=== PATIENT | female | born 1950 | race Caucasian/White ===

== ENCOUNTER 2021-01-03 19:09 | Emergency (ER) | payer MEDICARE, OTHER ==
[2021-01-03 19:19] VITALS: RESP 18
--- NOTE | 2021-01-03 19:21 | ED ---
General Adult HPI <Gavin Solis - Last Filed: 01/04/21 02:43> - General Source: patient, EMS, RN notes reviewed, old records reviewed Mode of arrival: EMS Limitations: no limitations <Robin Goss - Last Filed: 01/04/21 18:14> - General Stated complaint: Mental health, ETOH Time Seen by Provider: 01/03/21 19:13 - History of Present Illness Initial comments: 70-year-old female presenting for mental health evaluation, complains of depression, suicidal ideation. Additionally she admits to heavy alcohol consumption today and may have fallen, uncertain if she hit her head. Additional complaint of left-sided chest pain which is nonradiating. No associated nausea vomiting or diaphoresis. No history of CAD. This is been ongoing for the past several days. She was transported by EMS with chief complaint of suicidal ideation and alcohol consumption. (Robin Goss) - Related Data Home Medications Medication Instructions Recorded Confirmed No Known Home Medications 01/03/21 01/03/21 Allergies Allergy/AdvReac Type Severity Reaction Status Date / Time No Known Allergies Allergy Unverified 01/03/21 20:17 Review of Systems ROS Other: All systems not noted in ROS Statement are negative. <Gavin Solis - Last Filed: 01/04/21 02:43> ROS Other: All systems not noted in ROS Statement are negative. <Robin Goss - Last Filed: 01/04/21 18:14> ROS Statement: Those systems with pertinent positive or pertinent negative responses have been documented in the HPI. Past Medical History Past Medical History: No Reported History History of Any Multi-Drug Resistant Organisms: None Reported Past Surgical History: Hysterectomy Past Psychological History: Depression Smoking Status: Current every day smoker Past Alcohol Use History: Occasional Past Drug Use History: Marijuana <Robin Goss - Last Filed: 01/04/21 18:14> General Exam Limitations: no limitations General appearance: alert, in no apparent distress, appears intoxicated Head exam: Present: atraumatic, normocephalic Eye exam: Present: normal appearance, PERRL ENT exam: Present: normal exam Neck exam: Present: normal inspection. Absent: tenderness, meningismus Respiratory exam: Present: normal lung sounds bilaterally. Absent: respiratory distress, wheezes Cardiovascular Exam: Present: regular rate, normal rhythm GI/Abdominal exam: Present: soft. Absent: distended, tenderness, guarding, rebound Extremities exam: Present: normal inspection, normal capillary refill. Absent: pedal edema, calf tenderness Neurological exam: Present: alert, oriented X3. Absent: motor sensory deficit Psychiatric exam: Present: depressed, suicidal ideation Skin exam: Present: warm, dry, intact. Absent: cyanosis, diaphoretic <Robin Goss - Last Filed: 01/04/21 18:14> Course <Robin Goss - Last Filed: 01/04/21 18:14> Vital Signs 01/03/21 01/03/21 01/04/21 19:10 23:26 03:24 Pulse Rate 72 63 65 Respiratory 18 18 18 Rate Blood Pressure 142/59 144/73 131/62 O2 Sat by Pulse 97 100 98 Oximetry 01/04/21 14:02 Pulse Rate 92 Respiratory 18 Rate Blood Pressure 126/80 O2 Sat by Pulse 98 Oximetry - Reevaluation(s) Reevaluation #1: 01/03/21 2100 70-year-old female, intoxication, head trauma, vague complaint of chest discomfort. Head CT performed negative for intracranial hemorrhage or mass effect, chest x-ray negative for acute cardiopulmonary disease. She has a normal CBC, normal CMP, negative troponin. She will be sober at 10 PM. At shift change, 2099 her care is signed out to Dr. Montanez awaiting sobriety and EPS evaluation. (Robin Goss) EKG Findings - EKG Comments: EKG Findings:: EKG: Sinus bradycardia, with marked sinus arrhythmia, rate of 46, VT interval 200, QRS duration 98, QTC 395 this does appear to be sinus bradycardia with no ST segment elevation. <Robin Goss - Last Filed: 01/04/21 18:14> Medical Decision Making - Lab Data Result diagrams: 01/03/21 19:38 01/03/21 19:38 <Gavin Solis - Last Filed: 01/04/21 02:43> - Lab Data Result diagrams: 01/03/21 19:38 01/03/21 19:38 <Robin Goss - Last Filed: 01/04/21 18:14> - Medical Decision Making I saw this patient for purpose of completing the clinical certificate (Gavin Rodas) - Lab Data Lab Results 01/03/21 01/03/21 01/03/21 Range/Units 19:29 19:38 19:38 WBC 8.2 (3.8-10.6) k/uL RBC 3.67 L (3.80-5.40) m/uL Hgb 12.2 (11.4-16.0) gm/dL Hct 36.7 (34.0-46.0) % MCV 100.0 (80.0-100.0) fL MCH 33.2 (25.0-35.0) pg MCHC 33.2 (31.0-37.0) g/dL RDW 15.2 (11.5-15.5) % Plt Count 213 (150-450) k/uL MPV 7.8 Neutrophils % 64 % Lymphocytes % 29 % Monocytes % 4 % Eosinophils % 1 % Basophils % 0 % Neutrophils # 5.3 (1.3-7.7) k/uL Lymphocytes # 2.4 (1.0-4.8) k/uL Monocytes # 0.3 (0-1.0) k/uL Eosinophils # 0.1 (0-0.7) k/uL Basophils # 0.0 (0-0.2) k/uL Macrocytosis Slight PT 10.7 (9.0-12.0) sec INR 1.0 (<1.2) APTT 24.3 (22.0-30.0) sec Sodium (137-145) mmol/L Potassium (3.5-5.1) mmol/L Chloride (98-107) mmol/L Carbon Dioxide (22-30) mmol/L Anion Gap mmol/L BUN (7-17) mg/dL Creatinine (0.52-1.04) mg/dL Est GFR (CKD-EPI)AfAm (>60 ml/min/1.73 sqM) Est GFR (CKD-EPI)NonAf (>60 ml/min/1.73 sqM) Glucose (74-99) mg/dL Calcium (8.4-10.2) mg/dL Magnesium (1.6-2.3) mg/dL Total Bilirubin (0.2-1.3) mg/dL AST (14-36) U/L ALT (4-34) U/L Alkaline Phosphatase (38-126) U/L Troponin I (0.000-0.034) ng/mL Total Protein (6.3-8.2) g/dL Albumin (3.5-5.0) g/dL Urine Opiates Screen Not Detected (NotDetected) Ur Oxycodone Screen Not Detected (NotDetected) Urine Methadone Screen Not Detected (NotDetected) Ur Propoxyphene Screen Not Detected (NotDetected) Ur Barbiturates Screen Not Detected (NotDetected) U Tricyclic Antidepress Not Detected (NotDetected) Ur Phencyclidine Scrn Not Detected (NotDetected) Ur Amphetamines Screen Not Detected (NotDetected) U Methamphetamines Scrn Not Detected (NotDetected) U Benzodiazepines Scrn Not Detected (NotDetected) Urine Cocaine Screen Not Detected (NotDetected) U Marijuana (THC) Screen Detected H (NotDetected) Serum Alcohol mg/dL Coronavirus (PCR) (Not Detectd) 01/03/21 01/03/21 01/03/21 Range/Units 19:38 19:38 20:49 WBC (3.8-10.6) k/uL RBC (3.80-5.40) m/uL Hgb (11.4-16.0) gm/dL Hct (34.0-46.0) % MCV (80.0-100.0) fL MCH (25.0-35.0) pg MCHC (31.0-37.0) g/dL RDW (11.5-15.5) % Plt Count (150-450) k/uL MPV Neutrophils % % Lymphocytes % % Monocytes % % Eosinophils % % Basophils % % Neutrophils # (1.3-7.7) k/uL Lymphocytes # (1.0-4.8) k/uL Monocytes # (0-1.0) k/uL Eosinophils # (0-0.7) k/uL Basophils # (0-0.2) k/uL Macrocytosis PT (9.0-12.0) sec INR (<1.2) APTT (22.0-30.0) sec Sodium 147 H (137-145) mmol/L Potassium 3.8 (3.5-5.1) mmol/L Chloride 112 H (98-107) mmol/L Carbon Dioxide 24 (22-30) mmol/L Anion Gap 11 mmol/L BUN 15 (7-17) mg/dL Creatinine 1.18 H (0.52-1.04) mg/dL Est GFR (CKD-EPI)AfAm 54 (>60 ml/min/1.73 sqM) Est GFR (CKD-EPI)NonAf 47 (>60 ml/min/1.73 sqM) Glucose 96 (74-99) mg/dL Calcium 9.3 (8.4-10.2) mg/dL Magnesium 2.2 (1.6-2.3) mg/dL Total Bilirubin 0.3 (0.2-1.3) mg/dL AST 22 (14-36) U/L ALT 11 (4-34) U/L Alkaline Phosphatase 59 (38-126) U/L Troponin I <0.012 (0.000-0.034) ng/mL Total Protein 7.6 (6.3-8.2) g/dL Albumin 4.6 (3.5-5.0) g/dL Urine Opiates Screen (NotDetected) Ur Oxycodone Screen (NotDetected) Urine Methadone Screen (NotDetected) Ur Propoxyphene Screen (NotDetected) Ur Barbiturates Screen (NotDetected) U Tricyclic Antidepress (NotDetected) Ur Phencyclidine Scrn (NotDetected) Ur Amphetamines Screen (NotDetected) U Methamphetamines Scrn (NotDetected) U Benzodiazepines Scrn (NotDetected) Urine Cocaine Screen (NotDetected) U Marijuana (THC) Screen (NotDetected) Serum Alcohol 178 mg/dL Coronavirus (PCR) Not Detected (Not Detectd) Disposition <Gavin Solis - Last Filed: 01/04/21 02:43> Is patient prescribed a controlled substance at d/c from ED?: No - Out of Hospital Transfer - Req. Specs Out of Hospital Transfer - Requested Specifics: Psychiatric Non-ICU (Psychiatric facility) <Robin Goss - Last Filed: 01/04/21 18:14> Clinical Impression: Depression, Suicidal ideation Disposition: TRANSFER TO PSYCH HOSP/UNIT Condition: Stable Referrals: Samantha Bautista MD [Primary Care Provider] - 1-2 days
[2021-01-03 19:45] LABS: Basophils % (A) 0 %; Eosinophils # (A) 0.1 k/uL (0-0.7); Eosinophils % (A) 1 %; HCT 36.7 % (34.0-46.0); HGB 12.2 gm/dL (11.4-16.0); Lymphocytes # (A) 2.4 k/uL (1.0-4.8); Lymphocytes % (A) 29 %; MCH 33.2 pg (25.0-35.0); MCHC 33.2 g/dL (31.0-37.0); Macrocytosis Slight; Mean Platelet Volume 7.8; Monocytes # (A) 0.3 k/uL (0-1.0); Monocytes % (A) 4 %; Neutrophils # (A) 5.3 k/uL (1.3-7.7); Neutrophils % (A) 64 %; Platelet Count 213 k/uL (150-450); RBC 3.67 m/uL (3.80-5.40); RDW 15.2 % (11.5-15.5); WBC 8.2 k/uL (3.8-10.6)
[2021-01-03 19:49] LABS: Amphetamine Screen,Urine Not Detected (NotDetected); Barbiturate Screen,Urine Not Detected (NotDetected); Benzodiazepines Screen,Urine Not Detected (NotDetected); Cocaine Screen,Urine Not Detected (NotDetected); Methadone Screen, Urine Not Detected (NotDetected); Opiate Screen,Urine Not Detected (NotDetected); Oxycodone Screen, Urine Not Detected (NotDetected); Phencyclidine Screen,Urine Not Detected (NotDetected); Tricyclic Antidepressant,Urine Not Detected (NotDetected); Urn Cannabinoid Scrn Detected (NotDetected)
[2021-01-03 20:00] LABS: Prothrombin Time 10.7 sec (9.0-12.0)
[2021-01-03 20:01] LABS: Albumin 4.6 g/dL (3.5-5.0); Calcium 9.3 mg/dL (8.4-10.2); Magnesium 2.2 mg/dL (1.6-2.3); Partial Thromboplastin Time 24.3 sec (22.0-30.0); Potassium 3.8 mmol/L (3.5-5.1); Total Bilirubin 0.3 mg/dL (0.2-1.3); Total Protein 7.6 g/dL (6.3-8.2)
--- NOTE | 2021-01-03 20:20 | CT ---
EXAMINATION TYPE: CT brain wo con DATE OF EXAM: 01/03/2021 COMPARISON: 09/27/2017 HISTORY: fall CT DLP: 1111.4 mGycm Automated exposure control for dose reduction was used. Images obtained of the brain without contrast. There is mild cerebral atrophy. There is no mass effect nor midline shift. There is no sign of intrac ranial hemorrhage. Calvarium is intact. There is no evidence of cerebral edema. Skull base is intact. IMPRESSION: Negative unenhanced head CT scan. Mild atrophy.
--- NOTE | 2021-01-03 20:22 | XR ---
EXAMINATION TYPE: XR chest 2V DATE OF EXAM: 01/03/2021 COMPARISON: NONE HISTORY: Chest pain TECHNIQUE: FINDINGS: There is pulmonary hyperinflation with flattening of the diaphragm. Heart is normal. Thorac ic aorta is atheromatous. There are no hilar masses. Bony thorax is intact. IMPRESSION: COPD. No active cardiopulmonary disease. Normal heart.
[2021-01-03] MEDS ORDERED: NICOTINE 14MG/24HR PATCH TRANSDERM STA (20:48)
[2021-01-04 14:03] VITALS: BP 126/80; PULSE 92
== END 2021-01-04 14:02 ==
LOC: EC 19:09
DX: R45.851 Suicidal ideations (principal); F32.9 Major depressive disorder, single episode, unspecified; F17.200 Nicotine dependence, unspecified, uncomplicated; Z20.822 Contact with and (suspected) exposure to COVID-19
CPT/HCPCS: 82075; 36415; 93005; 80053; 83735; 84484; 85025; 85610; 85730; 80306; 87635; 71046; 70450; 99285; G0480; S4990; 80320

== ENCOUNTER → 2021-02-18 | Outpatient (CLI) | payer MEDICARE, OTHER ==
--- NOTE | 2021-02-18 11:16 | XR ---
EXAMINATION TYPE: XR shoulder limited RT DATE OF EXAM: 02/18/2021 CLINICAL HISTORY: Falling injury with pain and loss of range of motion. TECHNIQUE: Three views of the right shoulder are obtained. COMPARISON: None. FINDINGS: There is no acute fracture/dislocation evident in the right shoulder. Mild to moderate cj rowing acromioclavicular joint. Distal acromion morphology intact. Moderate narrowing glenohumeral danilo int. Subchondral cystic change superolateral humeral head The visualized ribs are intact . IMPRESSION: As above.
== END | disposition home or self-care (01) ==
LOC: RADXRMAIN 10:43
PROVIDERS: ATTEND Family Medicine
DX: M25.811 Other specified joint disorders, right shoulder (principal); Z74.09 Other reduced mobility

== ENCOUNTER → 2021-02-27 | Outpatient (CLI) | payer MEDICARE, OTHER ==
[2021-02-27 11:49] LABS: Albumin 4.4 g/dL (3.5-5.0); Calcium 9.5 mg/dL (8.4-10.2); Potassium 4.6 mmol/L (3.5-5.1); Total Bilirubin 0.4 mg/dL (0.2-1.3); Total Protein 7.2 g/dL (6.3-8.2)
[2021-02-27 12:03] LABS: HCT 35.1 % (34.0-46.0); MCH 34.5 pg (25.0-35.0); MCHC 34.2 g/dL (31.0-37.0); MCV 100.7 fL (80.0-100.0); Macrocytosis Slight; Mean Platelet Volume 7.8; Platelet Count 264 k/uL (150-450); RBC 3.48 m/uL (3.80-5.40); RDW 14.3 % (11.5-15.5); WBC 7.7 k/uL (3.8-10.6)
[2021-02-27 12:26] LABS: Partial Thromboplastin Time 24.8 sec (22.0-30.0); Prothrombin Time 10.6 sec (9.0-12.0)
[2021-02-27 12:29] LABS: Appearance,Urine Clear (Clear); Bilirubin,Urine Negative (Negative); Blood,Urine Negative (Negative); Color,Urine Yellow; Glucose,Urine (UA) Negative (Negative); Ketones,Urine Negative (Negative); Leukocyte Esterase,Urine Negative (Negative); Nitrite,Urine Negative (Negative); PH, Urine 5.5 (5.0-8.0); Protein,Urine Negative (Negative); Specific Gravity,Urine 1.015 (1.001-1.035); Urobilinogen,Urine <2.0 mg/dL (<2.0)
== END | disposition home or self-care (01) ==
LOC: LABPAT 10:09
PROVIDERS: ATTEND Orthopaedic Surgery Sports Medicine
DX: Z01.812 Encounter for preprocedural laboratory examination (principal); Z79.01 Long term (current) use of anticoagulants
CPT/HCPCS: 36415; 80053; 81003; 85027; 85610; 85730; 87070; 93005

== ENCOUNTER 2021-04-08 09:30 | Observation (INO) | payer MEDICARE, OTHER ==
--- NOTE | 2021-04-08 09:51 | ED ---
General Adult HPI - General Chief complaint: Altered Mental Status Stated complaint: Confusion Time Seen by Provider: 04/08/21 09:36 Source: patient, RN notes reviewed Mode of arrival: ambulatory Limitations: no limitations - History of Present Illness Initial comments: Patient is a pleasant 70-year-old female presenting to the emergency department with concerns regarding confusion. Onset of symptoms was just 2 days ago. Patient has had several episodes, waxing and waning, unclear how long they're lasting. Patient states no symptoms at this time. Patient states she has gotten lost 5 times over the past couple of days. Patient does not remember what she was doing at that time and is forgetful. Patient has no history of similar symptoms previously. No headache. No isolated area of weakness. No speech problems. No visual changes. - Related Data Home Medications Medication Instructions Recorded Confirmed Aspirin [Adult Low Dose Aspirin EC] 81 mg PO DAILY 03/05/21 04/08/21 Oxybutynin Chloride 5 mg PO DAILY 03/05/21 04/08/21 Allergies Allergy/AdvReac Type Severity Reaction Status Date / Time Penicillins Allergy Rash/Hives Verified 04/08/21 11:00 Review of Systems ROS Statement: Those systems with pertinent positive or pertinent negative responses have been documented in the HPI. ROS Other: All systems not noted in ROS Statement are negative. Constitutional: Denies: fever Eyes: Denies: eye pain ENT: Denies: ear pain Respiratory: Denies: cough Cardiovascular: Denies: chest pain Endocrine: Denies: fatigue Gastrointestinal: Denies: abdominal pain Genitourinary: Denies: dysuria Musculoskeletal: Denies: back pain Skin: Denies: rash Neurological: Reports: confusion. Denies: headache, weakness Past Medical History Past Medical History: No Reported History History of Any Multi-Drug Resistant Organisms: None Reported Past Surgical History: Hysterectomy Past Psychological History: Depression Smoking Status: Current every day smoker Past Alcohol Use History: Occasional Past Drug Use History: Marijuana General Exam Limitations: no limitations General appearance: alert, in no apparent distress Head exam: Present: normocephalic Eye exam: Present: normal appearance, PERRL, EOMI. Absent: nystagmus ENT exam: Present: normal oropharynx Neck exam: Present: normal inspection Respiratory exam: Present: normal lung sounds bilaterally Cardiovascular Exam: Present: regular rate, normal rhythm GI/Abdominal exam: Present: soft. Absent: tenderness Extremities exam: Present: normal inspection. Absent: pedal edema, calf tenderness Neurological exam: Present: alert, oriented X3, CN II-XII intact. Absent: motor sensory deficit Expanded Neurological exam: Present: protecting the airway Patient oriented to: Present: person, place, time Speech: Present: fluid speech Cranial nerves: EOM's Intact: Normal, Facial Sensation: Normal Sensory exam: Upper Extremity Light Touch: Normal, Lower Extremity Light Touch: Normal Motor strength exam: RUE: 5, LUE: 5, RLE: 5, LLE: 5 Eye Response: (4) open spontaneously Motor Response: (6) obeys commands Verbal Response: (5) oriented Psychiatric exam: Present: normal affect, normal mood Skin exam: Present: normal color Course Vital Signs 04/08/21 04/08/21 04/08/21 09:31 09:52 10:58 Temperature 97.5 F L Pulse Rate 65 64 55 L Respiratory 20 18 18 Rate Blood Pressure 115/67 129/57 O2 Sat by Pulse 97 100 97 Oximetry 04/08/21 11:21 Temperature 98.2 F Pulse Rate Respiratory Rate Blood Pressure O2 Sat by Pulse Oximetry EKG Findings - EKG Comments: EKG Findings:: Normal sinus rhythm at 62. [place] 170. QRS 92. QT 426. QTc 432. Normal axis. Normal QRS. No acute ST change. Medical Decision Making - Medical Decision Making Patient reevaluated and resting comfortably in bed. Patient updated on results and plan. As there is concern for possible TIA versus other. Patient will benefit from neurology evaluation. Case was discussed in detail with Dr. Valadez, covering for Dr. Jacobs, who admits for Dr. Bautista and will admit. - Lab Data Result diagrams: 04/08/21 09:50 04/08/21 09:50 Lab Results 04/08/21 04/08/21 04/08/21 Range/Units 09:50 09:50 09:50 WBC 7.5 (3.8-10.6) k/uL RBC 3.29 L (3.80-5.40) m/uL Hgb 11.3 L (11.4-16.0) gm/dL Hct 32.8 L (34.0-46.0) % MCV 99.8 (80.0-100.0) fL MCH 34.5 (25.0-35.0) pg MCHC 34.6 (31.0-37.0) g/dL RDW 13.9 (11.5-15.5) % Plt Count 228 (150-450) k/uL MPV 7.7 Neutrophils % 79 % Lymphocytes % 13 % Monocytes % 6 % Eosinophils % 1 % Basophils % 0 % Neutrophils # 5.9 (1.3-7.7) k/uL Lymphocytes # 1.0 (1.0-4.8) k/uL Monocytes # 0.4 (0-1.0) k/uL Eosinophils # 0.1 (0-0.7) k/uL Basophils # 0.0 (0-0.2) k/uL PT 11.0 (9.0-12.0) sec INR 1.0 (<1.2) APTT 23.7 (22.0-30.0) sec Sodium (137-145) mmol/L Potassium (3.5-5.1) mmol/L Chloride (98-107) mmol/L Carbon Dioxide (22-30) mmol/L Anion Gap mmol/L BUN (7-17) mg/dL Creatinine (0.52-1.04) mg/dL Est GFR (CKD-EPI)AfAm (>60 ml/min/1.73 sqM) Est GFR (CKD-EPI)NonAf (>60 ml/min/1.73 sqM) Glucose (74-99) mg/dL POC Glucose (mg/dL) (75-99) mg/dL POC Glu Beef Cattle Specialist ID Calcium (8.4-10.2) mg/dL Total Bilirubin (0.2-1.3) mg/dL AST (14-36) U/L ALT (4-34) U/L Alkaline Phosphatase (38-126) U/L Troponin I (0.000-0.034) ng/mL Total Protein (6.3-8.2) g/dL Albumin (3.5-5.0) g/dL Urine Color Yellow Urine Appearance Clear (Clear) Urine pH 5.5 (5.0-8.0) Ur Specific [place] 1.006 (1.001-1.035) Urine Protein Negative (Negative) Urine Glucose (UA) Negative (Negative) Urine Ketones Negative (Negative) Urine Blood Negative (Negative) Urine Nitrite Negative (Negative) Urine Bilirubin Negative (Negative) Urine Urobilinogen <2.0 (<2.0) mg/dL Ur Leukocyte Esterase Negative (Negative) Urine Opiates Screen Not Detected (NotDetected) Ur Oxycodone Screen Not Detected (NotDetected) Urine Methadone Screen Not Detected (NotDetected) Ur Propoxyphene Screen Not Detected (NotDetected) Ur Barbiturates Screen Not Detected (NotDetected) U Tricyclic Antidepress Not Detected (NotDetected) Ur Phencyclidine Scrn Not Detected (NotDetected) Ur Amphetamines Screen Not Detected (NotDetected) U Methamphetamines Scrn Not Detected (NotDetected) U Benzodiazepines Scrn Not Detected (NotDetected) Urine Cocaine Screen Not Detected (NotDetected) U Marijuana (THC) Screen Detected H (NotDetected) Coronavirus (PCR) (Not Detectd) 04/08/21 04/08/21 04/08/21 Range/Units 09:50 09:50 09:50 WBC (3.8-10.6) k/uL RBC (3.80-5.40) m/uL Hgb (11.4-16.0) gm/dL Hct (34.0-46.0) % MCV (80.0-100.0) fL MCH (25.0-35.0) pg MCHC (31.0-37.0) g/dL RDW (11.5-15.5) % Plt Count (150-450) k/uL MPV Neutrophils % % Lymphocytes % % Monocytes % % Eosinophils % % Basophils % % Neutrophils # (1.3-7.7) k/uL Lymphocytes # (1.0-4.8) k/uL Monocytes # (0-1.0) k/uL Eosinophils # (0-0.7) k/uL Basophils # (0-0.2) k/uL PT (9.0-12.0) sec INR (<1.2) APTT (22.0-30.0) sec Sodium 136 L (137-145) mmol/L Potassium 4.2 (3.5-5.1) mmol/L Chloride 106 (98-107) mmol/L Carbon Dioxide 22 (22-30) mmol/L Anion Gap 8 mmol/L BUN 9 (7-17) mg/dL Creatinine 1.07 H (0.52-1.04) mg/dL Est GFR (CKD-EPI)AfAm 61 (>60 ml/min/1.73 sqM) Est GFR (CKD-EPI)NonAf 53 (>60 ml/min/1.73 sqM) Glucose 104 H (74-99) mg/dL POC Glucose (mg/dL) (75-99) mg/dL POC Glu Beef Cattle Specialist ID Calcium 9.1 (8.4-10.2) mg/dL Total Bilirubin 0.7 (0.2-1.3) mg/dL AST 22 (14-36) U/L ALT 11 (4-34) U/L Alkaline Phosphatase 78 (38-126) U/L Troponin I <0.012 (0.000-0.034) ng/mL Total Protein 6.8 (6.3-8.2) g/dL Albumin 4.1 (3.5-5.0) g/dL Urine Color Urine Appearance (Clear) Urine pH (5.0-8.0) Ur Specific [place] (1.001-1.035) Urine Protein (Negative) Urine Glucose (UA) (Negative) Urine Ketones (Negative) Urine Blood (Negative) Urine Nitrite (Negative) Urine Bilirubin (Negative) Urine Urobilinogen (<2.0) mg/dL Ur Leukocyte Esterase (Negative) Urine Opiates Screen (NotDetected) Ur Oxycodone Screen (NotDetected) Urine Methadone Screen (NotDetected) Ur Propoxyphene Screen (NotDetected) Ur Barbiturates Screen (NotDetected) U Tricyclic Antidepress (NotDetected) Ur Phencyclidine Scrn (NotDetected) Ur Amphetamines Screen (NotDetected) U Methamphetamines Scrn (NotDetected) U Benzodiazepines Scrn (NotDetected) Urine Cocaine Screen (NotDetected) U Marijuana (THC) Screen (NotDetected) Coronavirus (PCR) Not Detected (Not Detectd) 04/08/21 Range/Units 09:51 WBC (3.8-10.6) k/uL RBC (3.80-5.40) m/uL Hgb (11.4-16.0) gm/dL Hct (34.0-46.0) % MCV (80.0-100.0) fL MCH (25.0-35.0) pg MCHC (31.0-37.0) g/dL RDW (11.5-15.5) % Plt Count (150-450) k/uL MPV Neutrophils % % Lymphocytes % % Monocytes % % Eosinophils % % Basophils % % Neutrophils # (1.3-7.7) k/uL Lymphocytes # (1.0-4.8) k/uL Monocytes # (0-1.0) k/uL Eosinophils # (0-0.7) k/uL Basophils # (0-0.2) k/uL PT (9.0-12.0) sec INR (<1.2) APTT (22.0-30.0) sec Sodium (137-145) mmol/L Potassium (3.5-5.1) mmol/L Chloride (98-107) mmol/L Carbon Dioxide (22-30) mmol/L Anion Gap mmol/L BUN (7-17) mg/dL Creatinine (0.52-1.04) mg/dL Est GFR (CKD-EPI)AfAm (>60 ml/min/1.73 sqM) Est GFR (CKD-EPI)NonAf (>60 ml/min/1.73 sqM) Glucose (74-99) mg/dL POC Glucose (mg/dL) 103 H (75-99) mg/dL POC Glu Beef Cattle Specialist OR [place] Calcium (8.4-10.2) mg/dL Total Bilirubin (0.2-1.3) mg/dL AST (14-36) U/L ALT (4-34) U/L Alkaline Phosphatase (38-126) U/L Troponin I (0.000-0.034) ng/mL Total Protein (6.3-8.2) g/dL Albumin (3.5-5.0) g/dL Urine Color Urine Appearance (Clear) Urine pH (5.0-8.0) Ur Specific [place] (1.001-1.035) Urine Protein (Negative) Urine Glucose (UA) (Negative) Urine Ketones (Negative) Urine Blood (Negative) Urine Nitrite (Negative) Urine Bilirubin (Negative) Urine Urobilinogen (<2.0) mg/dL Ur Leukocyte Esterase (Negative) Urine Opiates Screen (NotDetected) Ur Oxycodone Screen (NotDetected) Urine Methadone Screen (NotDetected) Ur Propoxyphene Screen (NotDetected) Ur Barbiturates Screen (NotDetected) U Tricyclic Antidepress (NotDetected) Ur Phencyclidine Scrn (NotDetected) Ur Amphetamines Screen (NotDetected) U Methamphetamines Scrn (NotDetected) U Benzodiazepines Scrn (NotDetected) Urine Cocaine Screen (NotDetected) U Marijuana (THC) Screen (NotDetected) Coronavirus (PCR) (Not Detectd) - Radiology Data Radiology results: report reviewed (Computed tomography scan of the brain shows atrophy and chronic appearing changes. No acute intercranial process.), image reviewed (Chest x-ray shows no acute process. COPD.) Disposition Clinical Impression: Altered mental status Disposition: ADMITTED IP TO THIS HOSP Is patient prescribed a controlled substance at d/c from ED?: No Referrals: Samantha Bautista MD [Primary Care Provider] - 1-2 days Decision Time: 11:50
[2021-04-08 10:07] LABS: Glucose,Whole Blood 103 mg/dL (75-99)
[2021-04-08 10:09] LABS: Basophils % (A) 0 %; Eosinophils # (A) 0.1 k/uL (0-0.7); Eosinophils % (A) 1 %; HCT 32.8 % (34.0-46.0); HGB 11.3 gm/dL (11.4-16.0); Lymphocytes % (A) 13 %; MCH 34.5 pg (25.0-35.0); MCHC 34.6 g/dL (31.0-37.0); MCV 99.8 fL (80.0-100.0); Mean Platelet Volume 7.7; Monocytes # (A) 0.4 k/uL (0-1.0); Monocytes % (A) 6 %; Neutrophils # (A) 5.9 k/uL (1.3-7.7); Neutrophils % (A) 79 %; Platelet Count 228 k/uL (150-450); RBC 3.29 m/uL (3.80-5.40); RDW 13.9 % (11.5-15.5); WBC 7.5 k/uL (3.8-10.6)
[2021-04-08 10:10] LABS: Appearance,Urine Clear (Clear); Bilirubin,Urine Negative (Negative); Blood,Urine Negative (Negative); Color,Urine Yellow; Glucose,Urine (UA) Negative (Negative); Ketones,Urine Negative (Negative); Leukocyte Esterase,Urine Negative (Negative); Nitrite,Urine Negative (Negative); PH, Urine 5.5 (5.0-8.0); Protein,Urine Negative (Negative); Specific Gravity,Urine 1.006 (1.001-1.035); Urobilinogen,Urine <2.0 mg/dL (<2.0)
[2021-04-08 10:21] LABS: Amphetamine Screen,Urine Not Detected (NotDetected); Barbiturate Screen,Urine Not Detected (NotDetected); Benzodiazepines Screen,Urine Not Detected (NotDetected); Cocaine Screen,Urine Not Detected (NotDetected); Methadone Screen, Urine Not Detected (NotDetected); Opiate Screen,Urine Not Detected (NotDetected); Oxycodone Screen, Urine Not Detected (NotDetected); Phencyclidine Screen,Urine Not Detected (NotDetected); Tricyclic Antidepressant,Urine Not Detected (NotDetected); Urn Cannabinoid Scrn Detected (NotDetected)
--- NOTE | 2021-04-08 10:24 | XR ---
EXAMINATION TYPE: XR chest 2V DATE OF EXAM: 04/08/2021 COMPARISON: 01/03/2021 INDICATION: Altered mental status TECHNIQUE: Frontal and lateral views of the chest are obtained. FINDINGS: The heart size is normal. The pulmonary vasculature is normal. Minimal posterior pleural effusions may be present. Lungs otherwise appear clear. There is an increas ed retrosternal airspace.. There is hyperinflation and flattening of diaphragms compatible with COPD . IMPRESSION: 1. Minimal posterior pleural effusions. 2. COPD
--- NOTE | 2021-04-08 10:25 | CT ---
EXAMINATION TYPE: CT brain wo con DATE OF EXAM: 04/08/2021 COMPARISON: 01/03/2021 INDICATION: Altered mental status DLP: 1076.4 mGycm, Automated exposure control for dose reduction was used. CONTRAST: None CT of the brain is performed utilizing 3 mm thick sections through the posterior fossa and 3 mm thick sections through the remaining calvarium. Study is performed within 24 hours of arrival to the hosp ital. No abnormal hyperdensity is present to suggest an acute intracranial hemorrhage. No mass lesion is evident. No acute infarcts are evident. There may be some very subtle periventricular white matter hypodensity , likely on the basis of chronic white matter ischemic changes Ventricles and sulci are mildly prominent for the patient age. Paranasal sinuses and mastoid air cells within the [id number] are clear. IMPRESSIONS: 1. Age-related atrophy with chronic appearing minimal periventricular white matter ischemic-type ch anges. 2. No acute intracranial process.
[2021-04-08 10:26] LABS: Partial Thromboplastin Time 23.7 sec (22.0-30.0)
[2021-04-08 10:32] LABS: Albumin 4.1 g/dL (3.5-5.0); Calcium 9.1 mg/dL (8.4-10.2); Potassium 4.2 mmol/L (3.5-5.1); Total Bilirubin 0.7 mg/dL (0.2-1.3); Total Protein 6.8 g/dL (6.3-8.2)
[2021-04-08] MEDS ORDERED: ASPIRIN 325 MG TAB PO STA (11:50)
--- NOTE | 2021-04-08 12:34 | US ---
EXAMINATION TYPE: US carotid duplex BILAT DATE OF EXAM: 04/08/2021 COMPARISON: US 2017 CLINICAL HISTORY: Stenosis. Pt states confusion, transient loss of memory EXAM MEASUREMENTS: RIGHT: Peak Systolic Velocity (PSV) cm/sec ----- Right CCA: 49.0 ----- Right ICA: 91.1 ----- Right ECA: 66.2 ICA/CCA ratio: 1.9 RIGHT: End Diastole cm/sec ----- Right CCA: 12.0 ----- Right ICA: 18.6 ----- Right ECA: 6.0 LEFT: Peak Systolic Velocity (PSV) cm/sec ----- Left CCA: 63.6 ----- Left ICA: 103.4 ----- Left ECA: 74.6 ICA/CCA ratio: 1.6 LEFT: End Diastole cm/sec ----- Left CCA: 13.9 ----- Left ICA: 12.8 ----- Left ECA: 10.9 VERTEBRALS (direction of flow): Right Vertebral: Antegrade Left Vertebral: Antegrade Rhythm: Normal There is a large plaque within the right carotid bulb. Additional plaque is present bilaterally No si gnificant stenosis identified by velocity Incidental finding large thyroid nodules bilaterally IMPRESSION: 1. No significant flow-limiting stenosis. Note is made of a large plaque within the right carotid bul b. 2. Incidental note is made of bilateral thyroid nodules. Thyroid ultrasound is recommended for additi onal characterization Criteria for Assigning % of Stenosis / Diameter reduction (Estimation based on the indirect measurements of the internal carotid artery velocities (ICA PSV). 1. Normal (no stenosis)=ICA PSV < 125 cm/s: ratio < 2.0: ICA EDV<40 cm/s. 2. Less than 50% stenosis=ICA PSV < 125 cm/s: ratio < 2.0: ICA EDV<40 cm/s. 3. 50 to 69% stenosis=ICA PSV of 125 to 230 cm/s: ration 2.0 ? 4.0: ICA EDV 40-100 cm/s. 4. Greater than 70% stenosis to near occlusion= ICA PSV > 230 cm/s: ratio > 4.0: ICA EDV > 100 cm/s. 5. Near occlusion= ICA PSV velocities may be low or undetectable: variable ratio and ICA EDV. 6. Total occlusion=unable to detect flow.
[2021-04-08] MEDS: SODIUM CHLORIDE 0.9% 1,000 ML IV SCH (12:45)
--- NOTE | 2021-04-08 15:05 | HP ---
HISTORY AND PHYSICAL I am covering for Dr. Enrique. DATE OF SERVICE: 04/08/2021. CHIEF COMPLAINT: Confusion and forgetfulness. HISTORY OF PRESENT ILLNESS: This 70-year-old woman with a past medical history of multiple medical problems including hysterectomy, history of depression, being followed by Dr. Jay Jay Bautista in the outpatient setting, was admitted for confusion and fogginess. The patient apparently got up and the patient had several episodes of waxing and waning. Patient unable to remember things such as information about the bank and the patient also got lost about 5 times. Because the patient was concerned, the patient came to [facility] for further evaluation and treatment. The initial WBC was 7.3, hemoglobin 11.3 and glucose of 104 and THC was detected in the urine and COVID-19 was negative. There is no history of fever, rigors, chills at this time. PAST MEDICAL HISTORY: History of hysterectomy, history of depression, history of THC, history of nicotine dependence. MEDICATIONS: Prior to admission: Oxybutynin, aspirin, doses reviewed. ALLERGIES: PENICILLIN. FAMILY HISTORY: No history of heart disease or strokes in the family. SOCIAL HISTORY: History of smoking. Occasional alcohol intake and THC. REVIEW OF SYSTEMS: ENT: No diminished vision. No diminished hearing. CARDIOVASCULAR: No angina. No palpitations. RESPIRATORY: No cough or hemoptysis. GI no nausea or vomiting. : No dysuria. Nervous System: As mentioned earlier. ALLERGY/IMMUNOLOGY: No asthma or hayfever. MUSCULOSKELETAL: As mentioned earlier. HEMATOLOGY/ONCOLOGY: No history of anemia. ENDOCRINE: No history of diabetes or hypothyroidism. CONSTITUTIONAL: As mentioned earlier. DERMATOLOGY negative. RHEUMATOLOGY: Negative. PSYCHIATRIC: As mentioned earlier. PHYSICAL EXAMINATION: Alert and oriented times three. Pulse 55, blood pressure 120/56, respiration 18, temperature 97.4, pulse ox 97 percent on room air. HEENT is conjunctivae normal. Oral mucosa moist. NECK is no jugular venous distention. No carotid bruit. No lymph node enlargement. CARDIOVASCULAR: S1, S2 muffled. RESPIRATORY: Breath sounds diminished in the bases. No rhonchi. No crackles. ABDOMEN: Soft, nontender. No mass palpable. LEGS: No edema. No swelling. NERVOUS SYSTEM: Higher functions as mentioned earlier. Moves all 4 limbs. No focal motor or sensory deficits. LYMPHATICS: No lymph nodes palpable in the neck, axillae or groin. SKIN: No ulcer, no rash and no bleeding. JOINTS: No active deforming arthropathy. LAB STUDIES: WBC 7.7, hemoglobin 11.3, sodium 136. Other labs are noted. ASSESSMENT: 1. Transient difficulties memory, possible acute transient ischemic attack. 2. Hyponatremia. 3. Increased creatinine with mild acute renal failure with acute tubular necrosis. 4. Anemia, normocytic of undetermined etiology. 5. History of hysterectomy. 6. History of depression. 7. History of nicotine dependence. 8. History of THC. RECOMMENDATIONS AND DISCUSSION: This 70-year-old woman who presented with multiple complex medical issues, we will monitor the patient closely. We will initiate antiplatelet, neurology consultation, neurovascular workup. Guarded prognosis because of multiple complex medical issues. Further recommendations to follow. A copy of this dictation being forwarded to Dr. Jay Jay Bautista who is the primary physician. MMODL / IJN: [id number] /
[2021-04-08] MEDS: HEPARIN SODIUM,PORCINE/PF 5,000 UNIT/0.5 ML SYRINGE SQ SCH ×2 (15:39→22:54)
[2021-04-08] MEDS: OXYBUTYNIN CHLORIDE 5 MG TAB PO SCH (15:39)
[2021-04-08] MEDS ORDERED: CLOPIDOGREL 75 MG TAB PO STA (16:09)
--- NOTE | 2021-04-08 17:12 | P.CNNES ---
History of Present Illness Consult date: 04/08/21 Requesting physician: Ezequiel Gutierrez Reason for Consult: altered metal status. Concern for tia History of Present Illness: This is a 70-year-old woman presented emergency department on 04/08/2021 for concern of confusion. Symptom onset was about 2 days ago and has been waxing and waning. Patient stated that the in the last 2 days she's been having confusion such as when she went to the grocery store she did not know how to pay. Another incidence is when the she went to the bank she no hot to make a deposited and didn't know how to fill out a form. Also when she was sitting at home she didn't know what was she doing. She also had that difficulty getting back to her house even with using a GPS on her phone and she had difficulty following instructions. This is unusual for her. She said for the last couple weeks she felt she was about to pass out but she would have to grab onto something. She denies any loss of consciousness. As a result of this feeling of about to pass out and slight dizziness she would fall but again not losing consciousness. She denies of any tongue bite or soreness, urinary or bowel incontinence. She denies of any history of seizures. She denies having any the similar presentation of memory issues like this in the past. She denies of any focal weakness, numbness, headache, difficulty getting her words out, difficulty swallowing associated with these confusion episodes. She denies off any fever, nausea or vomiting. She said that she had a mild cough but not significant but she smokes all the time. She said that the she has been taking aspirin 81mg daily for last couple weeks. She does smoke 1 pack a day for 50 years and she smokes marijuana but she said she is a smoker heavily of marijuana. Denies any alcohol use. Denies any family history of dementia. She denies having history of stroke or TIAs in the past. And denies any family history of stroke to her knowledge. Some of the workup in the hospital consisted of: Initial vital signs: Blood pressure of 115/67, heart rate of 65, respiratory of 20, temperature of 97.5 Fahrenheit oral and the pulse ox of 97% at room air. CT of the head is reported as age-related atrophy with chronic appearing minimal periventricular white matter ischemic type changes. No acute intracranial process. Carotid duplex was reported as no significant flow limiting stenosis. Note is made of a large plaque within the right carotid bulb. Incidental note is made of bilateral thyroid nodules. Thyroid ultrasound is recommended for additional catheterization. Initial white blood cell is 7.5 which is considered normal. Initial serum glucose is 104. Sodium is 136 which is slightly low creatinine is 1.07 which is also slightly low. AST of 22 ALT of 11 Urine drug screen is positive for marijuana Review of Systems Review of system: The 12 point system was reviewed and apparent positive and negative per HPI. Past Medical History Past Medical History: No Reported History History of Any Multi-Drug Resistant Organisms: None Reported Past Surgical History: Hysterectomy Past Psychological History: Depression Smoking Status: Current every day smoker Past Alcohol Use History: Occasional Past Drug Use History: Marijuana Medications and Allergies Home Medications Medication Instructions Recorded Confirmed Type Aspirin [Adult Low Dose Aspirin EC] 81 mg PO DAILY 03/05/21 04/08/21 History Oxybutynin Chloride 5 mg PO DAILY 03/05/21 04/08/21 History Allergies Allergy/AdvReac Type Severity Reaction Status Date / Time Penicillins Allergy Rash/Hives Verified 04/08/21 11:00 Physical Examination - Vital Signs Vital Signs: Vital Signs Temp Pulse Resp BP Pulse Ox 04/08/21 12:46 98.7 F 57 L 18 136/62 100 04/08/21 11:21 98.2 F 04/08/21 10:58 55 L 18 129/57 97 04/08/21 09:52 64 18 100 04/08/21 09:31 97.5 F L 65 20 115/67 97 Intake and Output 04/08/21 04/08/21 04/08/21 06:59 14:59 22:59 Other: Weight 56.699 kg GENERAL: The patient is lying in bed and is not in acute distress. CHEST: The heart rate is regular rate rhythm. No murmurs to auscultation. No carotid bruit bilaterally----. LUNG: Clear to auscultation bilaterally no wheezing noted throughout. Not labored breathing. ABDOMEN/GI: Bowel sounds present in all 4 quadrants. No tenderness to palpation throughout. NEUROLOGICAL: Higher mental function: The patient is awake, alert, oriented to self, place and time. Patient is following commands. No aphasia and no neglect. Cranial nerves: The pupils are round, equal and reactive to light and accommodat ion. Visual loving are full to confrontation throughout. Extraocular movement is intact no nystagmus is noted. Facial sensation is normal to touch throughout. The facial strength is normal throughout. Hearing is normal bilaterally to hand rub. Tongue is midline and moved [id number] without any difficulty. No dysarthria is noted. Shoulder shrug is normal bilaterally. Motor: The strength is 5 over 5 throughout. Normal tone and bulk. Cerebellum: Normal finger to nose heel to chin bilaterally. Sensation: Sensation is normal to touch throughout. Reflexes (right/left): Biceps ---; triceps---; brachioradialis; patellar----; ankles-----. Plantars are downgoing bilaterally. Results Urinalysis is negative for urinary tract infection. Rosales virus PCR was not detected. Coagulation study: PT of 11, INR 1.0, PTT of 23.7 - Laboratory Findings CBC and BMP: 04/08/21 09:50 04/08/21 09:50 Abnormal Lab Findings: Abnormal Labs 04/08/21 04/08/21 04/08/21 09:50 09:50 09:50 RBC 3.29 L Hgb 11.3 L Hct 32.8 L Sodium 136 L Creatinine 1.07 H Glucose 104 H POC Glucose (mg/dL) U Marijuana (THC) Screen Detected H 04/08/21 09:51 RBC Hgb Hct Sodium Creatinine Glucose POC Glucose (mg/dL) 103 H U Marijuana (THC) Screen Assessment and Plan Assessment: This is a 70-year-old woman presented emergency department on 04/08/2021 for concern of confusion for the last two days. She is having confusion of basic things (making a deposit at bank, getting back home even with using gbs on her phone, not knowing how to pay at grocery store). Encephalopathy of unknown etiology Large plaque within the right carotid bulb Per carotid duplex Presyncopal episodes (past couple weeks) Incidental note is made of bilateral thyroid nodules per carotid duplex Tobacco use (smokes 1PPD for 50 years) Marijuana use Plan: CT of the head is reported as age-related atrophy with chronic appearing minimal periventricular white matter ischemic type changes. No acute intracranial process. Carotid duplex was reported as no significant flow limiting stenosis. Note is made of a large plaque within the right carotid bulb. Incidental note is made of bilateral thyroid nodules. Thyroid ultrasound is recommended for additional catheterization. AST of 22 ALT of 11 MR the brain is ordered stat by the primary team is pending 2-D echo, lipid panel was ordered by the ED team is pending Patient was given aspirin 325 once in the ED and was started on aspirin 325 daily and I decreased it to 81mg. I loaded the patient with Plavix 300 mg once. Then for the patient to be on dual antiplatelets of Plavix 75 mg and 81mg especially with carotid plauqe. I started the patient on Lipitor 80mg qhs. I ordered CT angiography of the head and neck and consulted vascular surgery team for plaque on the right. I ordered TSH, vitamin B12, folate and vitamin 6 as well as hemoglobin A1c levels to rule out any factors contributing to patient's mentation change. Ordered a routine EEG. I will not start the patient on antiepileptic drug unless there is epileptiform discharges or seizure on the EEG. Ordered Q4 hour neuro checks On continous cardiac monitoring. Possibly consider cardiology consultation for presyncopal episode and recommended for the patient to be on the Holter monitor prior to discharge. We'll defer the rest of the medical management to the primary team. Thank you for the consultation. Keenan Chahal M.D. Neuro-hospitalist Time with Patient: Greater than 30
--- NOTE | 2021-04-08 17:45 | CT ---
EXAMINATION TYPE: CT angio head neck DATE OF EXAM: 04/08/2021 COMPARISON: None HISTORY: Altered mental status since Wednesday. No h/o CVA/TIA CT DLP: 414.5 mGycm Automated exposure control for dose reduction was used. CONTRAST: Performed with IV Contrast, patient injected with 65 mL of Isovue 370. Images obtained from the aortic arch to the vertex of the brain with IV contrast. There are 3-D post processed images. There is some atherosclerotic plaque in the aortic arch. There is normal branching pattern of the gre at vessels on the aortic arch. There is bilateral arterial flow in the subclavian arteries. There is arterial flow in the common internal and external carotid arteries bilaterally. There is bilateral pl aque formation at the carotid artery bifurcations. There is lumen narrowing proximal 35% at the origi n right internal carotid artery. There is less than 15% narrowing at the origin left internal carotid artery. There is arterial flow in both vertebral arteries. There is arterial flow in the vertebrobas ilar artery system. There is no evidence of carotid or vertebral artery aneurysm or dissection. There is arterial flow in the anterior middle and posterior cerebral arteries. I see no evidence of i ntracranial arterial stenosis. There is no mass effect. There is no sign of aneurysm or neovascularit y. IMPRESSION: No intracranial angiographic abnormality. Mild plaque formation at the carotid artery bifurcations without evidence of hemodynamic stenosis.
[2021-04-08] MEDS: NICOTINE 21MG/24HR PATCH TRANSDERM SCH (19:15)
[2021-04-08] MEDS ORDERED: ATORVASTATIN 80 MG TAB PO SCH (21:00)
[2021-04-09 01:47] LABS: Hemoglobin A1C 5.4 % (4.0-6.0)
[2021-04-09] MEDS: LORazepam 2 MG/ML INJ IV PRN (02:18)
[2021-04-09 07:15] LABS: Basophils % (A) 0 %; Eosinophils # (A) 0.1 k/uL (0-0.7); Eosinophils % (A) 1 %; HGB 10.1 gm/dL (11.4-16.0); Lymphocytes # (A) 1.3 k/uL (1.0-4.8); Lymphocytes % (A) 23 %; MCH 34.7 pg (25.0-35.0); MCHC 34.8 g/dL (31.0-37.0); MCV 99.7 fL (80.0-100.0); Mean Platelet Volume 7.6; Monocytes # (A) 0.3 k/uL (0-1.0); Monocytes % (A) 6 %; Neutrophils # (A) 3.8 k/uL (1.3-7.7); Neutrophils % (A) 69 %; Platelet Count 192 k/uL (150-450); RBC 2.91 m/uL (3.80-5.40); RDW 13.8 % (11.5-15.5); WBC 5.5 k/uL (3.8-10.6)
[2021-04-09 07:58] LABS: African American GFR (CKD) 58 (>60 ml/min/1.73 sqM); Anion Gap 5 mmol/L; Blood Urea Nitrogen 14 mg/dL (7-17); Calcium 8.6 mg/dL (8.4-10.2); Carbon Dioxide 22 mmol/L (22-30); Chloride 110 mmol/L (98-107); Cholesterol 156 mg/dL (<200); Glucose 92 mg/dL (74-99); HDL Cholesterol 31 mg/dL (40-60); LDL Cholesterol,Calculated 105 mg/dL (0-99); Non-African American GFR(CKD) 51 (>60 ml/min/1.73 sqM); Potassium 3.8 mmol/L (3.5-5.1); Sodium 137 mmol/L (137-145); Triglycerides 101 mg/dL (<150)
[2021-04-09] MEDS: SODIUM CHLORIDE 0.9% 1,000 ML IV SCH ×3 (08:35→19:50)
[2021-04-09] MEDS: NICOTINE 21MG/24HR PATCH TRANSDERM SCH (08:42)
[2021-04-09] MEDS: PANTOPRAZOLE 40 MG TABLET PO SCH (08:51)
--- NOTE | 2021-04-09 09:23 | P.GSCN ---
History of Present Illness Consult date: 04/09/21 Reason for Consult: Plaque in right carotid bulb Requesting physician: Keenan Chahal History of present illness: This is a pleasant 70-year-old female who presented to the emergency department with complaints of confusion and forgetfullness. She states it's been waxing and waning over the last couple days to the point where she has gotten lost 5 times over the last couple days. hShe also states she had blurry vision, denies any other focal deficits such as extremity weakness, speech difficulty, or difficulty with swallowing. She has no significant past medical history other than she is a current every day smoker, and also smokes marijuana. Neurology was consulted and ordered a carotid ultrasound which showed large plaque in the right carotid bulb, no significant flow-limiting stenosis. There is incidental finding of bilateral thyroid nodules. Thyroid ultrasound recommended for additional characterization. For this reason vascular surgery was consulted to see the patient. CT of the brain showed age-related atrophy with chronic appearing minimal periventricular white matter ischemic type changes. No acute intracranial process. CT angiogram of head and neck shows no intracranial angiographic abnormality. Mild plaque formation in the carotid artery bifurcations without evidence of he modynamic stenosis. There is lumen narrowing proximal 35% at the origin of the right internal carotid artery and there is less than 15% narrowing at the origin of the left internal carotid artery. The patient is currently denying any focal deficits. She denies any shortness of breath, chest pain, abdominal pain, nausea or vomiting. Denies any previous history of carotid stenosis. Her home medications include low-dose aspirin and oxybutynin. Review of Systems A 14 point review of systems was completed all pertinent positives and negatives as stated in the HPI Past Medical History Past Medical History: No Reported History History of Any Multi-Drug Resistant Organisms: None Reported Past Surgical History: Hysterectomy Past Psychological History: Depression Smoking Status: Current every day smoker Past Alcohol Use History: Occasional Past Drug Use History: Marijuana - Past Family History Mother Family Medical History: Cancer Additional Family Medical History / Comment(s): Lung Cancer, age 60 Father Family Medical History: Coronary Artery Disease (CAD), Liver Disease Additional Family Medical History / Comment(s): from falling and head injury Medications and Allergies Home Medications Medication Instructions Recorded Confirmed Type Aspirin [Adult Low Dose Aspirin EC] 81 mg PO DAILY 03/05/21 04/08/21 History Oxybutynin Chloride 5 mg PO DAILY 03/05/21 04/08/21 History Allergies Allergy/AdvReac Type Severity Reaction Status Date / Time Penicillins Allergy Rash/Hives Verified 04/08/21 11:00 Surgical - Exam Vital Signs Temp Pulse Resp BP Pulse Ox 97.5 F L 65 20 115/67 97 04/08/21 09:31 04/08/21 09:31 04/08/21 09:31 04/08/21 09:31 04/08/21 09:31 General appearance: The patient is alert, oriented, appears in no acute distress. HET: Head is normocephalic and atraumatic. Pupils are equal and reactive. Oropharynx is clear without lesions. Neck: Supple without lymphadenopathy. Trachea midline. No audible carotid bruit. Heart: S1 S2. Regular rate and rhythm. Lungs: Clear to auscultation. Abdomen: Soft, nontender, nondistended. Extremities: Normal skin color and turgor. No cyanosis, rash, ulceration, clubbing, or edema. Radial and pedal pulses are 2/4 bilaterally. Neurological: No focal deficits. Strength and sensation are grossly intact. Results - Labs 04/09/21 04:51 04/09/21 04:51 Abnormal Lab Results - Last 24 Hours (Table) 04/08/21 04/08/21 04/08/21 Range/Units 09:50 09:50 09:50 RBC 3.29 L (3.80-5.40) m/uL Hgb 11.3 L (11.4-16.0) gm/dL Hct 32.8 L (34.0-46.0) % Sodium 136 L (137-145) mmol/L Creatinine 1.07 H (0.52-1.04) mg/dL Glucose 104 H (74-99) mg/dL POC Glucose (mg/dL) (75-99) mg/dL TSH (0.350-5.500) uIU/mL U Marijuana (THC) Screen Detected H (NotDetected) 04/08/21 04/08/21 04/09/21 Range/Units 09:51 17:51 04:51 RBC 2.91 L (3.80-5.40) m/uL Hgb 10.1 L (11.4-16.0) gm/dL Hct 29.0 L (34.0-46.0) % Sodium (137-145) mmol/L Creatinine (0.52-1.04) mg/dL Glucose (74-99) mg/dL POC Glucose (mg/dL) 103 H (75-99) mg/dL TSH 0.090 L (0.350-5.500) uIU/mL U Marijuana (THC) Screen (NotDetected) Diabetes panel 04/08/21 04/08/21 Range/Units 09:50 17:51 Sodium 136 L (137-145) mmol/L Potassium 4.2 (3.5-5.1) mmol/L Chloride 106 (98-107) mmol/L Carbon Dioxide 22 (22-30) mmol/L BUN 9 (7-17) mg/dL Creatinine 1.07 H (0.52-1.04) mg/dL Glucose 104 H (74-99) mg/dL Hemoglobin A1c 5.4 (4.0-6.0) % Calcium 9.1 (8.4-10.2) mg/dL AST 22 (14-36) U/L ALT 11 (4-34) U/L Alkaline Phosphatase 78 (38-126) U/L Total Protein 6.8 (6.3-8.2) g/dL Albumin 4.1 (3.5-5.0) g/dL Thyroid panel 04/08/21 Range/Units 17:51 TSH 0.090 L (0.350-5.500) uIU/mL Calcium panel 04/08/21 Range/Units 09:50 Calcium 9.1 (8.4-10.2) mg/dL Albumin 4.1 (3.5-5.0) g/dL Pituitary panel 04/08/21 04/08/21 Range/Units 09:50 17:51 Sodium 136 L (137-145) mmol/L Potassium 4.2 (3.5-5.1) mmol/L Chloride 106 (98-107) mmol/L Carbon Dioxide 22 (22-30) mmol/L BUN 9 (7-17) mg/dL Creatinine 1.07 H (0.52-1.04) mg/dL Glucose 104 H (74-99) mg/dL Calcium 9.1 (8.4-10.2) mg/dL TSH 0.090 L (0.350-5.500) uIU/mL Adrenal panel 04/08/21 Range/Units 09:50 Sodium 136 L (137-145) mmol/L Potassium 4.2 (3.5-5.1) mmol/L Chloride 106 (98-107) mmol/L Carbon Dioxide 22 (22-30) mmol/L BUN 9 (7-17) mg/dL Creatinine 1.07 H (0.52-1.04) mg/dL Glucose 104 H (74-99) mg/dL Calcium 9.1 (8.4-10.2) mg/dL Total Bilirubin 0.7 (0.2-1.3) mg/dL AST 22 (14-36) U/L ALT 11 (4-34) U/L Alkaline Phosphatase 78 (38-126) U/L Total Protein 6.8 (6.3-8.2) g/dL Albumin 4.1 (3.5-5.0) g/dL - Imaging Additional studies: CT angiogram of head and neck shows no intracranial angiographic abnormality. Mild plaque formation in the carotid artery bifurcations without evidence of he modynamic stenosis. There is lumen narrowing proximal 35% at the origin of the right internal carotid artery and there is less than 15% narrowing at the origin of the left internal carotid artery. Carotid ultrasound: No significant flow-limiting stenosis. Note is made of large plaque within the right carotid bulb. Incidental note is made of bilateral thyroid nodules. Thyroid ultrasound is recommended for additional characterization. CT brain: Age-related atrophy with chronic appearing minimal periventricular white matter ischemic type changes. No acute intracranial process. Assessment and Plan Assessment: 1. Altered mental status changes 2. Plaque within the right carotid bulb as per carotid ultrasound 3. Current smoker Plan: 1. Agree with aspirin, Plavix, and statin 2. There is no significant internal carotid stenosis seen on CT angiogram 3. There is no indication for any vascular surgical intervention at this time. Recommend patient to follow up outpatient with vascular surgery for monitoring. 4. Await MRI and EEG results, await recommendations from neurology Thank you for this consultation, we will be on stand by if needed. The impression and plan of care has been dictated as directed. Dr. La I performed a history and examination of this patient, discussed the same with the dictator. I agree with the dictator's note ,documented as a scribe. Any additional findings or plans will be noted.
[2021-04-09] MEDS: CLOPIDOGREL 75 MG TAB PO SCH (10:12)
[2021-04-09] MEDS: FOLIC ACID 1 MG TAB PO SCH (10:12)
[2021-04-09] MEDS: OXYBUTYNIN CHLORIDE 5 MG TAB PO SCH (10:12)
[2021-04-09] MEDS: HEPARIN SODIUM,PORCINE/PF 5,000 UNIT/0.5 ML SYRINGE SQ SCH ×2 (10:12→19:50)
--- NOTE | 2021-04-09 11:35 | ECHOF ---
Referral Reason:Thrombus MEASUREMENTS -------- HEIGHT: 157.5 cm WEIGHT: 56.7 kg BP: IVSd: 1.2 cm (0.6 - 1.1) LVIDd: 3.5 cm (3.9 - 5.3) LVPWd: 1.3 cm (0.6 - 1.1) IVSs: 1.5 cm LVIDs: 1.5 cm LVPWs: 1.8 cm Ao Diam: 3.4 cm (2.0 - 3.7) AV Cusp: 1.1 cm (1.5 - 2.6) LA Diam: 2.8 cm (2.7 - 3.8) MV EXCURSION: 17.701 mm (> 18.000) MV EF SLOPE: 75 mm/s (70 - 150) EPSS: 1.4 cm MV E Trent: 0.69 m/s MV DecT: 194 ms MV A Trent: 1.00 m/s MV E/A Ratio: 0.69 AV maxP.12 mmHg AV meanP.31 mmHg AR PHT: 856 ms RAP: 15.00 mmHg RVSP: 29.26 mmHg FINDINGS -------- This was a technically good study. The left ventricular size is normal. There is mild concentric left ventricular hypertrophy. Overa ll left ventricular systolic function is normal with, an EF between 55 - 60 %. The diastolic fillin g pattern is normal for the age of the patient 24.67. The right ventricle is normal in size. The left atrial size is normal. Normal LA size by volume 22+/-6 ml/m2. The right atrial size is normal. Interatrial and interventricular septum intact. Aortic valve is trileaflet and is mildly thickened. There is moderate aortic regurgitation. There is mild aortic stenosis present. Peak/mean gradient across the Aortic Valve is 27.12mmHg / 13.31mm Hg. The mitral valve is normal. The mitral valve leaflets are mildly thickened. Mild mitral regurgita tion is present. The tricuspid valve appears structurally normal. Mild tricuspid regurgitation present. Right vent ricular systolic pressure is normal at < 35 mmHg. There is no pulmonic regurgitation present. The aortic root size is normal. The inferior vena cava is mildly dilated. There is no pericardial effusion. CONCLUSIONS -------- 1. The left ventricular size is normal. 2. There is mild concentric left ventricular hypertrophy. 3. Overall left ventricular systolic function is normal with, an EF between 55 - 60 %. 4. The diastolic filling pattern is normal for the age of the patient 24.67 5. Aortic valve is trileaflet and is mildly thickened. 6. There is moderate aortic regurgitation. 7. There is mild aortic stenosis present. 8. Peak/mean gradient across the Aortic Valve is 27.12mmHg / 13.31mmHg. 9. The mitral valve leaflets are mildly thickened. 10. Mild mitral regurgitation is present. 11. Mild tricuspid regurgitation present. 12. The inferior vena cava is mildly dilated. 13. There is no pericardial effusion. ENGINEERING DIRECTOR: Susanna Cummings RDCS
--- NOTE | 2021-04-09 12:36 | P.PN ---
Subjective Progress Note Date: 04/09/21 She was seen at bedside and she stated that the she feels better today compared to yesterday. She denies of any focal weakness, numbness, visual disturbance or getting her words out. Objective - Vital Signs Vital signs: Vital Signs Temp 98.3 F 04/09/21 07:30 Pulse 51 L 04/09/21 08:00 Resp 20 04/09/21 08:00 BP 134/62 04/09/21 07:30 Pulse Ox 99 04/09/21 07:30 Intake & Output 04/08/21 04/09/21 04/09/21 18:59 06:59 18:59 Weight 56.699 kg 56.699 kg Other: Voiding Method Toilet # Voids 1 - Exam GENERAL: The patient is lying in bed and is not in acute distress. CHEST: The heart rate is regular rate rhythm. No murmurs to auscultation. No carotid bruit bilaterally. NEUROLOGICAL: Higher mental function: The patient is awake, alert, oriented to self, place and time. Patient is following commands. No aphasia and no neglect. Cranial nerves: The pupils are round, equal and reactive to light and accommodation. Visual loving are full to confrontation throughout. Extraocular movement is intact no nystagmus is noted. Facial sensation is normal to touch throughout. The facial strength is normal throughout. Hearing is normal bilaterally to hand rub. Tongue is midline and moved [id number] without any difficulty. No dysarthria is noted. Shoulder shrug is normal bilaterally. Motor: Gait is deferred. The strength is 5 over 5 throughout. Normal tone and bulk. Cerebellum: Normal finger to nose heel to chin bilaterally. Sensation: Sensation is normal to touch throughout. Reflexes (right/left):2+ throughout. Plantars are downgoing bilaterally. - Labs CBC & Chem 7: 04/09/21 04:51 04/09/21 04:51 Labs: Abnormal Lab Results - Last 24 Hours (Table) 04/08/21 04/09/21 04/09/21 Range/Units 17:51 04:51 04:51 RBC 2.91 L (3.80-5.40) m/uL Hgb 10.1 L (11.4-16.0) gm/dL Hct 29.0 L (34.0-46.0) % Chloride 110 H (98-107) mmol/L Creatinine 1.10 H (0.52-1.04) mg/dL LDL Cholesterol, Calc 105 H (0-99) mg/dL HDL Cholesterol 31 L (40-60) mg/dL TSH 0.090 L (0.350-5.500) uIU/mL Assessment and Plan Assessment: This is a 70-year-old woman presented emergency department on 04/08/2021 for concern of confusion for the last two days. She is having confusion of basic things (making a deposit at bank, getting back home even with using gbs on her phone, not knowing how to pay at grocery store). Encephalopathy of unknown etiology Possibly patient has underlying dementia/cognitive impairement Large plaque within the right carotid bulb Per carotid duplex but not on CTA head/neck Presyncopal episodes (past couple weeks) Incidental note is made of bilateral thyroid nodules per carotid duplex Tobacco use (smokes 1PPD for 50 years) Marijuana use Plan: CT of the head is reported as age-related atrophy with chronic appearing minimal periventricular white matter ischemic type changes. No acute intracranial process. Carotid duplex was reported as no significant flow limiting stenosis. Note is made of a large plaque within the right carotid bulb. Incidental note is made of bilateral thyroid nodules. Thyroid ultrasound is recommended for additional catheterization. CT angiography of the head and neck was reported as no intracranial angiographic abnormality. Mild plaque formation at the carotid artery bifurcation without evidence of hemodynamic stenosis 2-D echo was reported as mild concentric left ventricular hypertrophy. Ejection fraction of 55-60%. Moderate aortic regurgitation. Left atrial size is normal. Lipid panel: Triglyceride of 101, cholesterol of 156, LDLs 105 and HDL of 31. The goal in the LDL and strokes is less than 70. TSH is 0.090 which is low but the free T4 is 1.30 which is normal. Hemoglobin A1c is a 5.4 which is considered normal. MR the brain is ordered stat by the primary team is pending The patient is on ASA 81mg and Plavix 75mg daily. To be on dual antiplateles for 21 days then after that to discontinue ASA but to remain on Plavix 75mg daily indefinetly. I decreased Lipitor from 80mg qhs to 40mg qhs. Vitamin B12 is 335 which is on the low normal side. I will prophylactically start the patient on vitamin B12 1000 g daily. Pending folate and vitamin 6 levels as possible contributing factor to patient's change in mentation. Ordered a routine EEG. I will not start the patient on antiepileptic drug unless there is epileptiform discharges or seizure on the EEG. Ordered Q4 hour neuro checks On continous cardiac monitoring. Vascular surgery team is on board. Possibly consider cardiology consultation for presyncopal episode and recommended for the patient to be on the Holter monitor prior to discharge. We'll defer the rest of the medical management to the primary team. The plan is discussed with the patient's nurse. Keenan Chahal M.D. Neuro-hospitalist Time with Patient: Less than 30
[2021-04-09] MEDS: CYANOCOBALAMIN 500 MCG TAB PO SCH (13:04)
[2021-04-09] MEDS: THIAMINE 100 MG TAB PO SCH (13:05)
[2021-04-09] MEDS: MULTIVITAMINS, THERA 1 EACH TAB PO SCH (13:05)
--- NOTE | 2021-04-09 16:01 | EEG ---
ELECTROENCEPHALOGRAM REPORT DATE OF SERVICE: 04/09/2021 CLINICAL HISTORY: This is a 70-year-old woman who presented to the emergency department for confusion. The EEG is obtained to evaluate for seizure and epileptiform activity. RELEVANT MEDICATION: Patient is not on any antiepileptic drugs. EEG TYPE: A routine 21-channel EEG is performed with video using the 10/20 electrode system. DESCRIPTION: Wakefulness is only obtained. During wakefulness, there is a posterior dominant rhythm of low to moderate voltage of 8.5-9.5 hertz activity that is well modulated and well sustained. There is no physiological sleep architecture seen. There is no focal slowing. Interictal and ictal is none. ACTIVATION PROCEDURE: Photic stimulation did not evoke a posterior driving response. Hyperventilation is not performed. CLINICAL IMPRESSION: This is a normal routine EEG. There are no focal slowing, epileptiform discharges or seizures on the EEG. Clinical correlation is recommended. MMESTELA / JENNIFER: [id number] / MTDD
--- NOTE | 2021-04-09 17:51 | MR ---
EXAMINATION TYPE: MR brain wo/w con DATE OF EXAM: 04/09/2021 COMPARISON: None HISTORY: Acute stroke, memory issues, dizziness after standing. CONTRAST: Standard multiplanar, multisequence MRI departmental protocol utilizing 5.5 mL intravenous Gadavist g adolinium contrast. Multiplanar multiecho imaging of the brain was performed without and with IV contrast. There is cerebral cortical atrophy. There is no mass effect nor midline shift. There is no evidence o f intracranial hemorrhage. Diffusion images show no evidence of an acute infarct. There is some gyrif orm linear increased signal in the right and left posterior frontal lobe convexities consistent with old small cortical infarcts. There are multiple foci of increased signal at the chandler-white matter junction of both cerebral hemisp heres. These measure up to 7 mm. Total number is approximately 20. These are more concentrated in the frontal lobes. The brainstem is intact. Cerebellum is intact. Corpus callosum is intact. Sella turcica appears normal. There is some mucosal thickening in the sphe noid sinus consistent with sinusitis. The contrast images show normal enhancement of the venous sinuses. There is no pathologic enhancement . IMPRESSION: Cerebral atrophy. No evidence of acute infarct. 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 W constantino matter changes are somewhat peripheral and could relate to chronic small vessel ischemia. Demyel inating disease not excluded.
--- NOTE | 2021-04-09 19:43 | PN ---
PROGRESS NOTE I am covering for Dr. Enrique. DATE OF SERVICE: 04/09/2021 This 70-year-old woman who was admitted with forgetfulness and some memory loss is being closely monitored at this time. The patient also had a presyncopal episode. The patient underwent a carotid Doppler which showed significant bilateral plaques, especially in the right carotid bulb, and bilateral thyroid nodules also. A CT angio ordered by Neurology showed no intracranial angiographic abnormality. Plaque formation was noted. No chest pain. No palpitation. PHYSICAL EXAMINATION: Alert and oriented . Pulse is 53, blood pressure 143/51, respiration 18, temperature 98 degrees, pulse ox 98% on room air. HEENT: Conjunctivae normal. NECK: No jugular venous distention. CARDIOVASCULAR SYSTEM: S1, S2 muffled. RESPIRATORY SYSTEM: Breath sounds diminished at the bases. No rhonchi. No crackles. ABDOMEN: Soft, non-tender. NERVOUS SYSTEM: No focal deficit. LABS: WBC 5.2, hemoglobin is 10.1, creatinine is 1.10. LDL is 105. TSH is 0.090, but free T4 is normal. THC is positive. ASSESSMENT: 1. Transient ischemic attack with memory difficulties, possibly. 2. Right carotid artery bulb plaque without any stenosis. 3. Hyponatremia. 4. Increased creatinine with mild acute renal failure with acute tubular necrosis. 5. Anemia, normocytic; undetermined etiology. 6. History of hysterectomy. 7. History of depression. 8. History of nicotine dependence. 9. History of tetrahydrocannabinol. 10.Presyncope. 11.Mild aortic stenosis. RECOMMENDATIONS AND DISCUSSION: I recommend to continue current medications, continue with the monitoring, symptomatic treatment. The patient had a 2D echo also which was rather unremarkable, with mild aortic stenosis and mild mitral regurgitation. I would also recommend cardiology consultation. Further recommendations to follow. Vascular surgery consultation also has been obtained. MMODL / IJN: [id number] /
[2021-04-09] MEDS ORDERED: ATORVASTATIN 40 MG TAB PO SCH (21:00)
[2021-04-10] MEDS: LORazepam 2 MG/ML INJ IV PRN (00:34)
[2021-04-10] MEDS: SODIUM CHLORIDE 0.9% 1,000 ML IV SCH (05:22)
[2021-04-10 08:01] VITALS: RESP 16; TEMP 97.8
[2021-04-10] MEDS ORDERED: ASPIRIN 325 MG TAB PO SCH (09:00)
[2021-04-10] MEDS ORDERED: ASPIRIN 81 MG PO SCH (09:00)
[2021-04-10] MEDS: HEPARIN SODIUM,PORCINE/PF 5,000 UNIT/0.5 ML SYRINGE SQ SCH (09:02)
[2021-04-10] MEDS: PANTOPRAZOLE 40 MG TABLET PO SCH (09:02)
[2021-04-10] MEDS: CLOPIDOGREL 75 MG TAB PO SCH (09:02)
[2021-04-10] MEDS: CYANOCOBALAMIN 500 MCG TAB PO SCH (09:02)
[2021-04-10] MEDS: NICOTINE 21MG/24HR PATCH TRANSDERM SCH (09:03)
[2021-04-10] MEDS: OXYBUTYNIN CHLORIDE 5 MG TAB PO SCH (09:03)
[2021-04-10 09:29] VITALS: BP 130/66; PULSE 60
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
--- NOTE | 2021-04-10 09:54 | P.PN ---
Subjective Progress Note Date: 04/10/21 Principal diagnosis: Right carotid bulb stenosis Should seen and examined sitting up in bed. She denies any further focal deficits. She actually states her memory has come back from the period where she states she had confusion and forgetfulness. She denies any visual changes or syncopal episodes. Cardiology is on board and recommending outpatient event monitor. Neurology is on board. MRI ordered and reviewed with no acute findings. EEG shows normal activity. Objective - Vital Signs Vital signs: Vital Signs Temp 97.8 F 04/10/21 07:00 Pulse 56 L 04/10/21 07:00 Resp 16 04/10/21 07:00 BP 143/65 04/10/21 07:00 Pulse Ox 98 04/10/21 02:00 Intake & Output 04/09/21 04/10/21 04/10/21 18:59 06:59 18:59 Intake Total 1200 Balance 1200 Weight 56.699 kg Intake: IV 1200 Sodium Chloride 0.9% 1, 1200 000 ml @ 100 mls/hr IV . Q10H DEVORA Rx#:[id number] Other: Voiding Method Toilet Toilet # Voids 1 2 - Exam General appearance: The patient is alert, oriented, in no acute distress. HET: Head is normocephalic and atraumatic. Pupils are equal and reactive. Neck: Supple without lymphadenopathy. Trachea midline. Heart: S1 S2. Regular rate and rhythm. Lungs: Clear to auscultation. Extremities: Normal skin color and turgor. No cyanosis, rash, ulceration, clubbing, or edema. Radial and pedal pulses are 2/4 bilaterally. Neurological: No focal deficits. Strength and sensation are grossly intact. - Labs CBC & Chem 7: 04/09/21 04:51 04/09/21 04:51 Assessment and Plan Assessment: 1. Altered mental status changes 2. Plaque within the right carotid bulb as per carotid ultrasound 3. Current smoker Plan: 1. Agree with aspirin, Plavix, and statin 2. There is no significant internal carotid stenosis seen on CT angiogram 3. There is no indication for any vascular surgical intervention at this time. Recommend patient to follow up outpatient with vascular surgery for monitoring. 4. MRI and EEG reviewed 5. Cardiology consult, recommend outpatient 30 day event monitor 6. Continue with recommendations from neurology Patient may be discharged home from a vascular surgical standpoint Thank you for this consultation, we will sign off at this time. The impression and plan of care has been dictated as directed. Dr. Ortega I performed a history and examination of this patient, discussed the same with the dictator. I agree with the dictator's note ,documented as a scribe. Any additional findings or plans will be noted.
--- NOTE | 2021-04-10 12:07 | P.PN ---
Subjective Progress Note Date: 04/10/21 She stated she is doing well. Denies any new neurological problems. Objective - Vital Signs Vital signs: Vital Signs Temp 97.8 F 04/10/21 07:00 Pulse 60 04/10/21 09:15 Resp 16 04/10/21 08:00 BP 130/66 04/10/21 09:15 Pulse Ox 98 04/10/21 02:00 Intake & Output 04/09/21 04/10/21 04/10/21 18:59 06:59 18:59 Intake Total 1200 180 Balance 1200 180 Weight 56.699 kg Intake: IV 1200 Sodium Chloride 0.9% 1, 1200 000 ml @ 100 mls/hr IV . Q10H DEVORA Rx#:[id number] Oral 180 Other: Voiding Method Toilet Toilet Toilet # Voids 1 2 - Exam GENERAL: The patient is lying in bed and is not in acute distress. CHEST: The heart rate is regular rate rhythm. No murmurs to auscultation. No carotid bruit bilaterally. NEUROLOGICAL: Higher mental function: The patient is awake, alert, oriented to self, place and time. Patient is following commands. No aphasia and no neglect. Cranial nerves: The pupils are round, equal and reactive to light and accommodation. Visual loving are full to confrontation throughout. Extraocular movement is intact no nystagmus is noted. Facial sensation is normal to touch throughout. The facial strength is normal throughout. Hearing is normal bilaterally to hand rub. Tongue is midline and moved [id number] without any difficulty. No dysarthria is noted. Shoulder shrug is normal bilaterally. Motor: Gait is deferred. The strength is 5 over 5 throughout. Normal tone and bulk. Cerebellum: Normal finger to nose heel to chin bilaterally. Sensation: Sensation is normal to touch throughout. Reflexes (right/left):2+ throughout. Plantars are downgoing bilaterally. - Labs CBC & Chem 7: 04/09/21 04:51 04/09/21 04:51 Labs: Abnormal Lab Results - Last 24 Hours (Table) 04/08/21 Range/Units 17:51 Vitamin B6 4 L (5-50) ug/L Assessment and Plan Assessment: This is a 70-year-old woman presented emergency department on 04/08/2021 for con cern of confusion for the last two days. She is having confusion of basic things (making a deposit at bank, getting back home even with using gbs on her phone, not knowing how to pay at grocery store). Her altered mentation could be due to vitamin decencies: Folic acid deficiency (folate level 3.0), Vitamin B6 4) and low Vitamin B12 (335) Possibly patient has underlying dementia/cognitive impairement Large plaque within the right carotid bulb Per carotid duplex but not on CTA head/neck Presyncopal episodes (past couple weeks) Incidental note is made of bilateral thyroid nodules per carotid duplex Tobacco use (smokes 1PPD for 50 years) Marijuana use Plan: CT of the head is reported as age-related atrophy with chronic appearing minimal periventricular white matter ischemic type changes. No acute intracranial process. Carotid duplex was reported as no significant flow limiting stenosis. Note is made of a large plaque within the right carotid bulb. Incidental note is made of bilateral thyroid nodules. Thyroid ultrasound is recommended for additional catheterization. CT angiography of the head and neck was reported as no intracranial angiographic abnormality. Mild plaque formation at the carotid artery bifurcation without evidence of hemodynamic stenosis 2-D echo was reported as mild concentric left ventricular hypertrophy. Ejection fraction of 55-60%. Moderate aortic regurgitation. Left atrial size is normal. Lipid panel: Triglyceride of 101, cholesterol of 156, LDLs 105 and HDL of 31. The goal in the LDL and strokes is less than 70. TSH is 0.090 which is low but the free T4 is 1.30 which is normal. Hemoglobin A1c is a 5.4 which is considered normal. MR the brain: As reported as cerebral atrophy. No evidence of acute infarct. Old posterior frontal small cortical infarct. White matter changes are somewhat peripheral and could relate to chronic small vessel ischemia. Demyelinating disease not excluded. I reviewed the MRI the brain I do not see any acute or subacute ischemic stroke. Regarding the frontal small old infarcts I feel it could be possibly the chronic small vessel ischemia. The patient is on ASA 81mg and Plavix 75mg daily. To be on dual antiplateles for 21 days then after that to discontinue ASA but to remain on Plavix 75mg daily indefinetly. I decreased Lipitor from 80mg qhs to 40mg qhs. Vitamin B12 is 335 which is on the low normal side. Continue vitamin B12 1000 g daily. Folate level is 3 and was started on folic acid 1mg daily. Vitamin B6: 4 (low) and started on Vitamin B6 50mg bid. EEG: Normal study. On continous cardiac monitoring. Vascular surgery team is on board: No intervention. Cardiology is consulted. We'll defer the rest of the medical management to the primary team. Patient needs to follow-up with a neurologist as outpatient within 1-2 weeks. Recommend follow-up on Vitamin levels as outpatient There is no further neurological work-up. The plan is discussed with the patient's nurse. Keenan Chahal M.D. Neuro-hospitalist Time with Patient: Less than 30
[2021-04-10] MEDS ORDERED: PYRIDOXINE 50 MG TAB PO SCH (12:15)
[2021-04-10] MEDS: FOLIC ACID 1 MG TAB PO SCH (13:16)
[2021-04-10] MEDS: THIAMINE 100 MG TAB PO SCH (13:16)
[2021-04-10] MEDS: MULTIVITAMINS, THERA 1 EACH TAB PO SCH (13:16)
--- NOTE | 2021-04-10 16:17 | P.DS ---
Providers Date of admission: 04/08/21 12:00 Expected date of discharge: 04/10/21 Attending physician: Ameya Valadez Consults: 04/08/21 11:51 Consult Physician Urgent Consulting Provider: Keenan Chahal Consult Reason/Comments: ams, eval for tia v other Do you want consulting provider notified?: Yes 04/08/21 16:10 Consult Physician Urgent Consulting Provider: Agustina La Consult Reason/Comments: right carotid bulb Do you want consulting provider notified?: Yes 04/09/21 17:39 Consult Physician Routine Consulting Provider: Neisha Choudhary Consult Reason/Comments: pre syncope Do you want consulting provider notified?: Yes Primary care physician: Samantha Bautista Hospital Course: Final diagnosis Transient ischemic attack with memory difficulties, possibly Right carotid artery bulb plaque without any stenosis Hyponatremia Increased creatinine with mild acute renal failure with acute tubular necrosis Anemia, normocytic, undetermined etiology History of hysterectomy History of depression History of nicotine dependence History of THC use Presyncope Mild aortic stenosis Discharge disposition Patient is being discharged in a stable condition with guarded prognosis to home. Patient will follow-up with Dr. Jay Jay Bautista upon discharge. Patient also instructed to follow-up with cardiology, neurology, and vascular surgery. Patient will have an event monitor placed prior to discharge. Patient will continue with aspirin, Plavix, and statin. Recommend repeat labs with prescription provided to monitor kidney functions. Total time taken is greater than 35 minutes. Hospital course This is a 70-year-old female who was recently admitted with forgetfulness and some memory loss along with a presyncopal episode. During hospitalization patient underwent carotid Doppler showing significant bilateral plaques especially in the right carotid bulb bilateral thyroid nodules also and patient underwent CT Angio with no intracranial angiographic abnormality with plaque formation noted. Patient was seen and evaluated by vascular surgery recommending to continue with aspirin, statin, and Plavix and no further surgical intervention at this time and follow-up outpatient as scheduled. Patient also instructed to follow-up with cardiology and neurology in the outpatient setting upon discharge. Patient having some minimal gait disturbance and will provide prescription for cane for stability. Cardiology also evaluated the patient recommending an event monitor be placed prior to discharge. Patient will follow-up with cardiology outpatient. Patient states she feels much improved and is asking to go home. Currently no reports of chest pain, shortness of breath, or palpitations. Patient is afebrile. No reports of nausea or vomiting and patient is tolerating diet. Patient will be discharged home today. Guarded prognosis. On exam vital signs are stable. Cardio S1, S2 are muffled. Respiratory shows diminished breath sounds at the bases with no wheezing or rhonchi noted. Abdomen is soft and nontender. Nervous system shows no focal deficits. Please refer to medication reconciliation sheet for a list of medications. Patient Condition at Discharge: Stable Plan - Discharge Summary New Discharge Prescriptions: New Aspirin 81 mg PO DAILY 21 Days #21 chew Nicotine 21Mg/24Hr Patch [Habitrol] 1 patch TRANSDERM DAILY #20 patch Multivitamins, Thera [Multivitamin (formulary)] 1 each PO DAILY@1200 #30 tab Cyanocobalamin [Vitamin B-12] 1,000 mcg PO DAILY 30 Days #60 tab Folic Acid 1 mg PO DAILY@1200 30 Days #30 tab Atorvastatin [Lipitor] 40 mg PO HS 30 Days #30 tab Clopidogrel [Plavix] 75 mg PO DAILY 30 Days #30 tab Pantoprazole [Protonix] 40 mg PO AC-BRKFST #30 tablet. Thiamine [Vitamin B-1] 100 mg PO DAILY@1200 #30 tab Continue Aspirin [Adult Low Dose Aspirin EC] 81 mg PO DAILY Oxybutynin Chloride 5 mg PO DAILY Discharge Medication List Aspirin [Adult Low Dose Aspirin EC] 81 mg PO DAILY 03/05/21 [History] Oxybutynin Chloride 5 mg PO DAILY 03/05/21 [History] Aspirin 81 mg PO DAILY 21 Days #21 chew 04/10/21 [Rx] Atorvastatin [Lipitor] 40 mg PO HS 30 Days #30 tab 04/10/21 [Rx] Clopidogrel [Plavix] 75 mg PO DAILY 30 Days #30 tab 04/10/21 [Rx] Cyanocobalamin [Vitamin B-12] 1,000 mcg PO DAILY 30 Days #60 tab 04/10/21 [Rx] Folic Acid 1 mg PO DAILY@1200 30 Days #30 tab 04/10/21 [Rx] Multivitamins, Thera [Multivitamin (formulary)] 1 each PO DAILY@1200 #30 tab 04/10/21 [Rx] Nicotine 21Mg/24Hr Patch [Habitrol] 1 patch TRANSDERM DAILY #20 patch 04/10/21 [Rx] Pantoprazole [Protonix] 40 mg PO AC-BRKFST #30 tablet. 04/10/21 [Rx] Thiamine [Vitamin B-1] 100 mg PO DAILY@1200 #30 tab 04/10/21 [Rx] Follow up Appointment(s)/Referral(s): [facility] [facility] [NON-STAFF] - As Needed (Contact agency regarding setting up Meals on Wheels) [facility] [NON-STAFF] - As Needed (Supplier of cane) Agustina La DO [STAFF PHYSICIAN] - 05/14/21 9:45 am Izabel Johansen MD [Medical Doctor] - 1 Week (Office will call with appointment time) Samantha Bautista MD [Primary Care Provider] - 04/15/21 11:00 am Neisha Choudhary MD [STAFF PHYSICIAN] - 3 Weeks (Cardiology office will call you with an appointment for 3 weeks.) Ambulatory/Diagnostic Orders: Complete Blood Count w/diff [LAB.AMB] Time Frame: 3 Days, Location: None Selected Patient Instructions/Handouts: Transient Ischemic Attack (DC), How to Stop Smoking (DC) Activity/Diet/Wound Care/Special Instructions: Activity Limited until follow-up follow up with primary care provider upon discharge Follow-up with neurology outpatient in 1-2 weeks Continue with event monitor and follow up with cardiology outpatient Repeat labs in 2-3 days continue aspirin and Plavix for 21 days and then may discontinue aspirin Continue with home care - Jacinto longoria Discharge/Stand Alone Forms: Who Do I Call? Discharge Disposition: HOME WITH HOME HEALTH SERVICES Care Plan Goals (MU): Event monitor
== END 2021-04-10 16:32 | disposition home health service (06) ==
LOC: EC 09:30 → 6NMEDSUR 12:00
PROVIDERS: ADMIT Internal Medicine; ATTEND Internal Medicine
DX: R41.0 Disorientation, unspecified (principal); I65.21 Occlusion and stenosis of right carotid artery; E87.1 Hypo-osmolality and hyponatremia; N17.0 Acute kidney failure with tubular necrosis; E04.2 Nontoxic multinodular goiter; D64.9 Anemia, unspecified; Z90.710 Acquired absence of both cervix and uterus; Z20.822 Contact with and (suspected) exposure to COVID-19; J44.9 Chronic obstructive pulmonary disease, unspecified; G93.40 Encephalopathy, unspecified; F32.9 Major depressive disorder, single episode, unspecified; I35.0 Nonrheumatic aortic (valve) stenosis; I34.0 Nonrheumatic mitral (valve) insufficiency; F03.90 Unspecified dementia, unspecified severity, without behavioral disturbance, psychotic disturbance, mood disturbance, and anxiety; I35.1 Nonrheumatic aortic (valve) insufficiency; F17.210 Nicotine dependence, cigarettes, uncomplicated; F12.90 Cannabis use, unspecified, uncomplicated; E53.8 Deficiency of other specified B group vitamins; Z79.82 Long term (current) use of aspirin; Z88.0 Allergy status to penicillin; Z80.1 Family history of malignant neoplasm of trachea, bronchus and lung; Z82.49 Family history of ischemic heart disease and other diseases of the circulatory system; Z83.79 Family history of other diseases of the digestive system
CPT/HCPCS: 96376; 96361 ×2; 96372 ×3; 96374; 99285; 36415; 95816; 93005; 93306; 93270; 84207; 84439; 80061; 80053; 80048; 84443; 82607; 82746; 84484; 85025 ×2; 85610; 85730; 81003; 80306; 83036; 87635; 71046; 93880; 70496; 70450; 70498; 70553; G0378 ×3; S4990 ×3; J2060 ×2; A9585; Q9967; J1644 ×3

== ENCOUNTER → 2021-04-15 | Outpatient (CLI) | payer MEDICARE, OTHER ==
--- NOTE | 2021-04-15 13:26 | CT ---
EXAMINATION TYPE: CT angio thor/abd pel aorta DATE OF EXAM: 04/15/2021 COMPARISON: None. HISTORY: H/O AAA CT DLP: 745 mGycm. Automated Exposure Control for Dose Reduction was Utilized. CONTRAST: CTA scan of the thorax, abdomen and pelvis is performed with IV Contrast, patient injected with 80ml mL of Isovue 370. Three-D reconstructed images created on an independent workstation and reviewed FINDINGS: Suboptimal study as reconstructed images do not include entire length of the aneurysm and p mauricio. VASCULAR: Satisfactory enhancement of the central pulmonary arteries. Normal 3 vessel origin from aor tic arch. No significant plaque or stenosis. Mild calcified plaque in the aortic arch. No thoracic ao rtic aneurysm or dissection. Mild to moderate mixed plaque in the descending thoracic aorta. Focal mo derate eccentric plaque superior origin celiac artery without greater than 50% stenosis. Patent SMA w ithout significant stenosis patent bilateral single renal arteries without significant stenosis. Infr arenal abdominal aorta shows tortuous course and aneurysm with significant intramural noncalcified pl aque. Thin rim calcified wall noted. Patent SREEDHAR is present. AAA up to 4.6 cm noted on axial image 83. Moderate to severe calcified plaque in the iliac arterial branches without aneurysmal extension. No significant stenosis. Length of aneurysm near 8.0 cm. LUNGS: Patchy groundglass nodules medial left lower lobe and in the right lower lobe lateral aspect. Mild adjacent linear scarring and/or atelectasis in the right lower lobe. Mild emphysematous change. MEDIASTINUM: There are no greater than 1 cm hilar or mediastinal lymph nodes. No cardiomegaly or pe ricardial effusion is seen. Heterogeneous enlarged thyroid with substernal extension consistent with diffuse goiter noted. Coronary artery calcification is present. LIVER/GB: Gallbladder not seen and presumed surgically absent. PANCREAS: No significant abnormality is seen. SPLEEN: No significant abnormality is seen. ADRENALS: No significant abnormality is seen. KIDNEYS: A few scattered simple-appearing thin-walled cysts throughout both kidneys. BOWEL: No significant abnormality is seen. GENITAL ORGANS: Uterus is surgically absent. LYMPH NODES: No greater than 1cm abdominal or pelvic lymph nodes are appreciated. OSSEOUS STRUCTURES: No significant abnormality is seen. OTHER: No significant additional abnormality is seen. IMPRESSION: There is AAA up to 4.6 cm over roughly 8 cm in length without common iliac arterial exten nivia. At minimal surveillance study in 6 months time is advised to reassess.
== END | disposition home or self-care (01) ==
LOC: RADCTMAIN 11:30
PROVIDERS: ATTEND Family Medicine
DX: I71.4 Abdominal aortic aneurysm, without rupture (principal)
CPT/HCPCS: 82565; 84520; 71275; 36415; 74174; Q9967

== ENCOUNTER → 2021-05-10 | Outpatient (CLI) | payer MEDICARE, OTHER ==
--- NOTE | 2021-05-10 14:48 | MR ---
EXAMINATION TYPE: MR brain wo con DATE OF EXAM: 05/10/2021 COMPARISON: 04/09/2021 HISTORY: Headaches, confusion with nonfocal neurological exam. Multiplanar multiecho imaging of the brain was performed without contrast. FINDINGS: There is cerebral cortical atrophy. There is no mass effect nor midline shift. Diffusion images show no evidence of an acute infarct. On the T2 and FLAIR images there is some gyriform cortical increased signal in the right and left posterior frontal lobe consistent with an old infarct. There are scatte red white matter high signal foci at the chandler-white matter junction of both cerebral hemispheres. Thi s is mainly in the frontal lobes and measure up to 7 mm. Total number is approximately 10. There is s ome linear mild increased signal in the white matter adjacent to the lateral ventricles. There is no hydrocephalus. Cerebellum is intact. There is no evidence of a posterior fossa mass. IMPRESSION: Mild cerebral atrophy. White matter signal changes are somewhat peripheral and could relate to microv ascular ischemia. No significant change compared to old exam. 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
== END | disposition home or self-care (01) ==
LOC: RADMRIMAIN 07:05
PROVIDERS: ATTEND Family Medicine
DX: G31.9 Degenerative disease of nervous system, unspecified (principal); I63.9 Cerebral infarction, unspecified
CPT/HCPCS: 70551

== ENCOUNTER → 2021-06-26 | Outpatient (CLI) | payer MEDICARE, OTHER ==
[2021-06-26 19:13] LABS: Basophils # (A) 0.02 X 10*3/uL (0.00-0.10); Basophils % (A) 0.3 %; Eosinophils # (A) 0.17 X 10*3/uL (0.04-0.35); Eosinophils % (A) 2.3 %; HCT 33.2 % (37.2-46.3); HGB 10.8 g/dL (12.0-15.0); Lymphocytes # (A) 1.67 X 10*3/uL (0.90-5.00); MCH 32.6 pg (27.0-32.0); MCHC 32.5 g/dL (32.0-37.0); MCV 100.3 fL (80.0-97.0); Mean Platelet Volume 10.6 fL (9.5-12.2); Monocytes # (A) 0.42 X 10*3/uL (0.20-1.00); Monocytes % (A) 5.8 %; Neutrophils # (A) 4.96 X 10*3/uL (1.80-7.70); Neutrophils % (A) 68.2 %; Platelet Count 251 X 10*3/uL (140-440); RBC 3.31 X 10*6/uL (4.10-5.20); RDW 13.1 % (11.5-14.5); Reticulocyte % 1.48 % (0.10-1.80); WBC 7.27 X 10*3/uL (4.50-10.00)
[2021-06-27 05:02] LABS: % Iron Saturation 22.82 (12.00-45.00); Ferritin 64.9 ng/mL (10.0-291.0)
[2021-06-27 17:01] LABS: Folate, Serum 12.8 ng/mL
== END | disposition home or self-care (01) ==
LOC: LABWHC1 15:11
PROVIDERS: ATTEND Psychiatry & Neurology Pain Medicine
DX: R41.3 Other amnesia (principal)
CPT/HCPCS: 36415; 82306; 82607; 82728; 82746; 83540; 83550; 84207; 84439; 84443; 84466; 84481; 85025; 85045

== ENCOUNTER → 2021-08-01 | Outpatient (CLI) | payer MEDICARE, OTHER ==
--- NOTE | 2021-08-01 16:00 | MR ---
EXAMINATION TYPE: MR shoulder RT wo con DATE OF EXAM: 08/01/2021 COMPARISON: None HISTORY: Right shoulder pain Technique: Multiplanar, multiecho imaging on a 3.0 Alyx magnet is performed through the shoulder. Findings: Rotator Cuff: Rotator cuff appears intact. No retraction is evident. No suspicious signal transversin g the rotator cuff is identified. Acromioclavicular Joint: Intact. Significant hypertrophy is not identified. No separation is evident. Glenohumeral Joint: There is narrowing of the glenohumeral joint space. Labrum: The labrum appears grossly intact given limitation of non-arthrogram study. Biceps Tendon: The long head of biceps is in normal location within bicipital groove. Abundant fluid surrounds the long biceps tendon compatible with moderate tendinosis. Bone marrow signal: Subchondral cyst formation is within the humeral head. Marrow signal otherwise ap pears unremarkable. Other: No additional significant abnormality is appreciated. IMPRESSIONS: 1. 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 Subchondral cyst formati on is also noted within the humeral head. 2. Moderate tendinosis long head biceps tendon
== END | disposition home or self-care (01) ==
LOC: RADMRIMAIN 10:47
PROVIDERS: ATTEND Orthopaedic Surgery
DX: M19.011 Primary osteoarthritis, right shoulder (principal); M67.813 Other specified disorders of tendon, right shoulder